=== PATIENT | male | born 1990 | race Hispanic/Latino ===

== ENCOUNTER 2019-04-01 20:53 | Emergency (ER) | payer OTHER ==
[2019-04-01] MEDS ORDERED: LIDOCAINE HCL 2% VISCOUS 15 ML UDCUP ONE (21:20)
[2019-04-01] MEDS ORDERED: SUCRALFATE 1 GM TABLET ONE (22:10)
== END 2019-04-01 22:20 | disposition home or self-care (01) ==
LOC: EDH 20:53
DX: S10.15XA Superficial foreign body of throat, initial encounter (principal); X58.XXXA Exposure to other specified factors, initial encounter; Y93.89 Activity, other specified; Y92.89 Other specified places as the place of occurrence of the external cause; Y99.8 Other external cause status
CPT/HCPCS: 70360; 71045